=== PATIENT | female | born 1980 | race Caucasian/White ===

== ENCOUNTER → 2018-12-20 | Outpatient (REF) ==
[~2018-12-20] MED LIST: APAP/HYDRO325 MG/10 PO; AUGMENTIN500TAB PO; AUGMENTIN875TAB PO; AVELOX400 MG PO; CONTRAVE 8-90 M1 TAB PO; DEPO-MEDROL80 MG/ML IM; DIFLUCAN150 MG PO; DYMISTA1 SPR; LORTAB 7.5-3251 TAB PO; MEDDOSEPAK PO; NASONEX50 MCG/AC; NASONEX50 MCG/AC NAB; PRENATAL1 TA1 PO; PROBIOTI1 PO; PSEUDOEPHEDR30 MG PO; ROBITUSSIN AC10 ML PO; TIZANIDINE HCL4 M1 PO; XYZAL5 MG PO; ZYRTEC10 M5 PO
[2018-12-20 09:34] LABS: CHOLESTEROL HDL RATIO 4.7 (<4.4 (CALC))
== END | disposition home or self-care (01) | DRG 951 ==
LOC: LAB 08:10
PROVIDERS: ATTEND Family Medicine
DX: Z02.6 Encounter for examination for insurance purposes (principal)

== ENCOUNTER 2018-12-23 15:05 | Emergency (ER) | payer OTHER ==
[~2018-12-23] VITALS: Ht 165.1 cm; Wt 99.0 kg
[~2018-12-23 15:05] MED LIST changes: -APAP/HYDRO325 MG/10 PO; -DYMISTA1 SPR; -XYZAL5 MG PO
[2018-12-23] MEDS ORDERED: APAP/HYDRO325 MG/10 PO (16:01)
[2018-12-23] MEDS ORDERED: XYZAL5 MG PO (16:02)
[2018-12-23] MEDS ORDERED: DYMISTA1 SPR (16:02)
[2018-12-23 16:35] VITALS: BP 115/72
== END 2018-12-23 16:35 | disposition home or self-care (01) | DRG 563 ==
LOC: ED 15:05
DX: S93.402A Sprain of unspecified ligament of left ankle, initial encounter (principal); X50.1XXA Overexertion from prolonged static or awkward postures, initial encounter; Y93.01 Activity, walking, marching and hiking; Y92.009 Unspecified place in unspecified non-institutional (private) residence as the place of occurrence of the external cause